=== PATIENT | male | born 1995 | race Caucasian/White ===

== ENCOUNTER 2023-03-16 03:57 | Outpatient (REF) | payer SELFPAY ==
[2023-03-19 10:32] LABS: Measles IgG Antibody Positive (See Note); Mumps Antibody IgG Positive (See Note); Rubella IgG Ab (UVM) Positive (See Note); Varicella IgG Antibody Positive (See Note)
[2023-03-19 11:02] LABS: HBs Antibody, Quant <3.1 mIU/mL (See Note); Hepatitis B Surface Ab Negative (See Note)
[2023-03-19 14:01] LABS: TB Interpretation Negative (Negative); TB1 Ag minus Nil 0.01 IU/ml; TB2 Ag minus Nil 0.03 IU/mL
== END 2023-03-16 03:58 | disposition home or self-care (01) ==
LOC: LBO 03:57
PROVIDERS: Visit Provider Nurse Practitioner Family
DX: Z02.1 Encounter for pre-employment examination (principal); Z11.59 Encounter for screening for other viral diseases; Z11.1 Encounter for screening for respiratory tuberculosis
CPT/HCPCS: 36415; 86706; 86787; 86480; 86735; 86762; 86765

== ENCOUNTER 2023-07-02 08:43 | Emergency (ER) | payer OTHER, SELFPAY ==
--- NOTE | 2023-07-02 08:44 | ED.GENADUL_ITS ---
Discharge Plan Disposition Patient Disposition: Home Discharge Details Clinical Impression: Chest pain, unspecified Primary Care Provider: Rody Zimmerman ED Provider: Ho Easley Home Meds and New Rx's Prescriptions: No Action No Known Home Meds Discharge Instructions Instructions: Chest Pain (ED) Additional Instructions: You were seen in the emergency department for your chest pain. Your blood work showed no sign of heart attack. Your blood work also showed that you are not anemic. Please return to the emergency department if you develop shortness of b reath vomiting or any additional blood or have any other concerns. Otherwise please follow-up with your primary care provider later this week. Discharge Data Discharge Date/Time-TO BE ENTERED AT DEPARTURE: 07/02/23 13:09 HPI General Date/Time Provider Initiated Documentation: 07/02/23 08:44 . HPI Narrative: MDM This is an overall very well-appearing normothermic and not tachycardic 28-year-old male with chest pain and history of hematemesis for which patient will undergo labs along with type and screen. Patient does have shortness of breath associated chest pain and I considered PE however the patient is PERC negative so I did not send a D-dimer. Patient lacks risk factors for ACS beyond obesity so if his 2 troponins are negative and is nonischemic ECG will be appropriate for empiric trial of discharge with expectant outpatient management given low heart score. I considered Boerhaave syndrome however the patient has no crepitance and is nontoxic-appearing so I did not feel that he required a CT of his chest abdomen pelvis. Furthermore his history is reassuring as he states that his chest pain did not worsen this morning after vomiting but was in the background for the past several weeks. If his chest x-ray is abnormal we will consider CT chest. Patient is not hypotensive nor dialysis patient so doubt tamponade. Given elevated BMI with chest pain will obtain lipase to assess for pancreatitis. No rash to chest to suggest zoster. No pain out of proportion to suggest necrotizing soft tissue infection. No fevers nor cough so doubt pneumonia. Equal breath sounds and no trauma so doubt pneumothorax. No tearing quality to pain so doubt aortic dissection. 10 AM CBC with leukocytosis but no anemia. No thrombocytopenia. 10:22 AM Negative troponin. Comprehensive metabolic panel showing no LFT abnormalities. Normal renal function. No acute electrolyte abnormalities. Lipase within normal limits. I have explained the patient's reassuring evaluation to him thus far. 1 PM Reassuring negative repeat troponin. Will proceed with an empiric trial of discharge with expectant outpatient management. Patient felt improved following IV fluids. HEART SCORE Chest pain Diagnostic Protocol: [-History/Physical/Gestalt: Slightly Suspicious (0)] [- EKG: Significant ST - depression (+2)] [- EKG: Nonspecific repolarization (+1)] [-EKG: Normal and/or unchanged from prior EKG (0)] [-AGE: less than 45 (0)] [- RISK FACTORS: 1 - 2 risk factors (+1)] [-TROPONIN: <= normal limit (0)] - TOTAL SCORE: 1 - Risk Factors: DM, current or recent smoker, HTN, HLD, family hx of CAD, obesity - INTERPRETATION: With a total score of 3 or less, risk of major cardiac event within six weeks 1.7%, likely lower with two negative troponins. [I explained to the patient that the risk of subsequent major cardiac event within 1 month is not 0, however risk predicted to be less than 2%. Patient verbalized understanding, accepts this risk and shared and the decision for discharge with PCP follow-up for further evaluation and management. They understand to return to the ED immediately with any worsening symptoms, new symptoms or other concerns.] Chronic conditions affecting the care of the patient: Elevated BMI History obtained from an outside historian: N/A External record review: No [facility] [place] [Diagnostic interpretations performed by me: Per my independent interpretation chest x-ray shows: No acute cardiopulmonary process Per my independent interpretation EKG shows: Normal sinus rhythm at a rate of 73. Normal axis. Interventricular conduction delay with a QRS of 107. IL and QTc within normal limits. No acute injury pattern. No prior for comparison. Medications: N/A Social determinants of health affecting disposition: N/A Management discussed with: N/A Treatment/interventions considered: N/A Response to therapies provided: Improved symptoms following fluids HPI This is a 28-year-old male arrived to the emergency department via private vehicle in the setting of nausea and vomiting. Patient reports that this morning after eating a lobster dinner last night he vomited approximately half a cup of blood. He is also for the past several weeks had a central chest tightness. He says that it is intermittent. No recent URI symptoms. He says that this is associated with shortness of breath. His pain does not radiate. It worsens when he coughs. It last for several minutes. He denies history of PE and DVT. His chest pain did not worsen today. He denies history of coronary artery disease hypertension hyperlipidemia and diabetes. He smokes marijuana but denies routine tobacco and illicits. He has had no recent fevers nor cough. Exam General: Well-appearing in no acute distress speaking in complete sentences. Head: Normocephalic, atraumatic. Eye: Extraocular eye movements intact. No conjunctival injection. No scleral icterus. Ear, nose, mouth, throat: Grossly normal inspection. Normal voice, handling secretions normally. Neck: Trachea midline. Cardiovascular: Well-perfused distal extremities. Regular rate and rhythm. Chest wall: No crepitance Respiratory: Nonlabored respiration. Clear lungs bilaterally Gastrointestinal: Nondistended abdomen. Nontender. Musculoskeletal: No edema. Moving all 4 extremities spontaneously. Skin: Normal for age and race, grossly normal temperature and turgor. No acute rash. Neurologic: Alert and appropriate, no apparent acute deficits. Psychiatric: Mood and manner are appropriate. Grooming and personal hygiene are appropriate. Related Data Home Medications Medication Instructions Recorded Confirmed Unknown [No Known Home Meds] 07/02/23 07/02/23 Allergies Allergy/AdvReac Type Severity Reaction Status Date / Time No Known Allergies Allergy Unverified 07/02/23 09:58 [facility] All Active Problems (Updated 07/02/23 @ 11:02 by Ho Easley MD) Chest pain, unspecified (Acute) Social History Smoking/Tobacco Use Status: Never Smoking risk assessment performed?: Yes Alcohol Intake: current Alcohol Intake frequency: holidays/special occasions only Drug use: Daily Substance use type: marijuana Housing: house
[2023-07-02 08:54] VITALS: BP 120/76; PULSE 83; RESP 18; TEMP 37.1; O2SAT 98
--- NOTE | 2023-07-02 09:00 | DI.RAD_ITS ---
Exam(s) XR CHEST 2V PA LATERAL EXAM: XR CHEST 2V PA LATERAL CLINICAL HISTORY: Chest pain TECHNIQUE: 2D digital imaging was performed. COMPARISON: No exams were available for comparison FINDINGS: HEART: Normal size. Aorta: Not dilated. PULMONARY VASCULATURE: Normal. LUNGS: Clear. PLEURAL SPACE: No pleural effusion or pneumothorax. BONE:Unremarkable for age. Soft tissues: Unremarkable. IMPRESSION: No acute abnormality. DATA REPOSITORY: RADIATION DOSE DELIVERED:
--- NOTE | 2023-07-02 09:00 | RT.EKG_ITS ---
APPROVED REPORT Exam: Resting ECG Reason for Exam: Chest pain Patient Location: E HR:73 bpm ECG Measurements Heart Rate 73 AXIS CA 182 P 18 QRSd 107 QRS -1 QT 372 T 31 QTc 410 Conclusion Sinus rhythm...normal P axis, V-rate 60- 99 Normal sinus rhythm at a rate of 73. Normal axis. Interventricular conduction delay with a QRS of 1 07. CA and QTc within normal limits. No acute injury pattern. No prior for comparison.
[2023-07-02 09:36] LABS: Abs Immature Grans 0.04 10^3/uL (0.0-0.06); Absolute Eosinophil Count 0.15 10^3/uL (0.0-0.7); Absolute Lymphocyte Count 1.64 10^3/uL (1.2-3.4); Absolute Monocyte Count 0.82 10^3/uL (0.1-0.8); Absolute Neutrophil Count 8.42 10^3/uL (1.2-6.7); Basophils % 0.9; Eosinophils % 1.3; HCT 47.9 % (40.0-50.0); HGB 16.1 g/dL (13.5-17.5); Immature Grans % 0.4; Lymphocytes % 14.7; MCH 29.3 pg (27.0-33.0); MCHC 33.6 % (32.0-36.0); MCV 87 fL (80-95); MPV 9.9 fL (8.0-11.0); Monocytes % 7.3; Neutrophils % 75.4; Platelet Count 333 10^3/uL (130-400); RBC 5.49 10^6/uL (4.36-5.78); RDW 12.7 % (11.8-14.1); RDW-SD 40.8 fL; WBC 11.17 10^3/uL (4.4-10.8)
[2023-07-02] MEDS: Ondansetron 4 MG/2 ML VIAL IVP (09:53)
[2023-07-02] MEDS: Normal Saline 1,000 ML 1000 ML IV (09:53)
[2023-07-02 09:54] VITALS: RESP 18
[2023-07-02 09:55] LABS: ALT 33 U/L (16-63); AST 18 U/L (15-37); Albumin 4.1 g/dL (3.4-5.0); Alkaline Phosphatase 94 U/L (46-116); Anion Gap 7.9 mmol/L (3-11); BUN 12 mg/dL (7-18); Bilirubin, Total 0.5 mg/dL (0.2-1.0); CO2 29.1 mmol/L (21.0-32.0); CREATININE 0.9 mg/dL (0.70-1.30); Calcium 9.2 mg/dL (8.5-10.1); Chloride 101 mmol/L (98-107); Estimated GFR 117.83 (mL/min/1.73m2); Glucose 106 mg/dL (74-106); Lipase 49 U/L (16-77); Potassium 3.9 mmol/L (3.5-5.1); Sodium 138 mmol/L (136-145); Troponin I < 50 ng/L (<or=60)
[2023-07-02 10:33] VITALS: BP 122/68; PULSE 69; RESP 18; TEMP 36.5; O2SAT 99
--- NOTE | 2023-07-02 11:17 | DI.VRAD_ITS ---
PROCEDURE INFORMATION: Exam: XR Chest Exam date and time: 07/02/2023 10:12 AM Age: 28 years old Clinical indication: Other: Unspecified; Patient HX: Chest pain TECHNIQUE: Imaging protocol: Radiologic exam of the chest. Views: 2 views. COMPARISON: No relevant prior studies available. FINDINGS: Lungs: Unremarkable. No consolidation. Pleural spaces: Unremarkable. No pleural effusion. No pneumothorax. Heart/Mediastinum: Unremarkable. No cardiomegaly. Bones/joints: Unremarkable. IMPRESSION: No acute findings. Dictated and Authenticated by: Anthony Cartwright MD. Ordering:ESTEFANY Teague MD
[2023-07-02 12:49] LABS: Troponin I < 50 ng/L (<or=60)
[2023-07-02 13:09] VITALS: BP 119/98; PULSE 72; RESP 18; O2SAT 98
== END 2023-07-02 13:09 | disposition home or self-care (01) ==
PROVIDERS: Emergency Provider Emergency Medicine; PCP Nurse Practitioner Family
DX: R07.89 Other chest pain (principal); R11.2 Nausea with vomiting, unspecified
CPT/HCPCS: 36415; 80053; 83690; 86850; 86900; 86901; 93005; 96361; 96374; 99284; 71046; 84484; 85025; 93010; 99283; J2405

== ENCOUNTER 2023-12-13 20:34 | Outpatient (REF) | payer OTHER, SELFPAY ==
[2023-12-13 19:15] LABS: Hemoglobin A1C 5.4 % (<5.7)
[2023-12-14 21:24] LABS: HIV-1/2 Ag & Ab Screen Negative (Negative)
[2023-12-14 21:36] LABS: Hepatitis C Ab w Rflx HCV PCR Negative (Negative)
== END 2023-12-13 20:35 | disposition home or self-care (01) ==
LOC: NCHCN 20:34
PROVIDERS: PCP Nurse Practitioner Family; Visit Provider Nurse Practitioner Family
DX: Z00.00 Encounter for general adult medical examination without abnormal findings (principal); E55.9 Vitamin D deficiency, unspecified; Z13.1 Encounter for screening for diabetes mellitus; Z11.59 Encounter for screening for other viral diseases; Z11.4 Encounter for screening for human immunodeficiency virus [HIV]
CPT/HCPCS: 82306; 86803; 87389; 83036

== ENCOUNTER 2024-08-15 10:09 | Outpatient (REF) | payer OTHER, SELFPAY ==
--- OUTSIDE RECORDS SUMMARY | 2024-08-15 10:11 | XMS_ITS | Referral Summary ---
Author Organization [facility] Address [address] [place] [address] Care Team Providers Care Graphic Design Manager Name Role Phone Unavailable Primary Care Provider Unavailabl e Social History Tobacco Use Types Packs/Day Years Used Date Smoking Tobacco: Never Assessed Sex and Gender Information Value Date Recorded Sex Assigned at Not on file Legal Sex Male 12:21 EDT Gender Identity Not on file Sexual Orientation Not on file Plan of Treatment Not on file Procedures Procedure Name Priority Date/Time Associated Diagnosis Comments HEPATITIS C AB W REFLEX TO HCV RNA BY PCR Routine 12/13/2023 16:00 EDT from Last 3 Months or Most Recently Relevant to Health Maintenance Results * HEPATITIS C AB W REFLEX TO HCV RNA BY PCR (12/13/2023 16:00 EDT) Hep C Antibody Negative Negative 12/14/2023 21:30 EDT [facility] Blood VENOUS BLOOD / Unknown 12/13/2023 16:00 EDT 12/14/2023 17:32 EDT us Provider Outr Resulting Lab CHEMISTRY & BLOOD GA S ORDERABLES Final Result [facility] [address], [place] [id number] from Last 3 Months or Most Recently Relevant to Health Maintenance
--- OUTSIDE RECORDS SUMMARY | 2024-08-15 10:11 | XMS_ITS | Encounter Summary ---
Author Organization [facility] Address [address] [place] [address] Care Team Providers Care Cardiovascular Tech Name Role Phone Unavailable Primary Care Provider Unavailabl e Encounter Details Date Type Department Care Team (Late st Contact Info) Description 12/14/2023 Lab Requisition [facility] Pathology & Laboratory Medicine - [facility] [address] [place] [address] Outr Resulting Lab, Provider Social History Tobacco Use Types Packs/Day Years Used Date Smoking Tobacco: Never Assessed Sex and Gender Information Value Date Recorded Sex Assigned at Not on file Legal Sex Male 12:21 EDT Gender Identity Not on file Sexual Orientation Not on file documented as of this encounter Plan of Treatment Not on file documented as of this encounter Procedures Procedure Name Priority Date/Time Associated Diagnosis Comments HEPATITIS C AB W REFLEX TO HCV RNA BY PCR Routine 12/13/2023 16:00 EDT documented in this encounter Results * HEPATITIS C AB W REFLEX TO HCV RNA BY PCR (12/13/2023 16:00 EDT) Hep C Antibody Negative Negative 12/14/2023 21:30 EDT [facility] Blood VENOUS BLOOD / Unknown 12/13/2023 16:00 EDT 12/14/2023 17:32 EDT us Provider Outr Resulting Lab CHEMISTRY & BLOOD GA S ORDERABLES Final Result [facility] [address] [place] [address] documented in this encounter Visit Diagnoses Not on filedocumented in this encounter
--- OUTSIDE RECORDS SUMMARY | 2024-08-15 10:11 | XMS_ITS | Encounter Summary ---
Author Organization [facility] Address [address] [place] [address] Care Team Providers Care Production Control Supervisor Name Role Phone Unavailable Primary Care Provider Unavailabl e Encounter Details Date Type Department Care Team (Late st Contact Info) Description 03/16/2023 Lab Requisition [facility] Pathology & Laboratory Medicine - [facility] [address] [place] [address] Outr Resulting Lab, Provider Social History Tobacco [...] Procedure Name Priority Date/Time Associated Diagnosis Comments MEASLES IGG AB Routine 03/16/2023 9:03 EDT RUBELLA IGG ANTIBODY Routine 03/16/2023 9:03 EDT HEPATITIS B SURFACE ANTIBODY Routine 03/16/2023 9:03 EDT VARICELLA IGG ANTIBODY Routine 03/16/2023 9:03 EDT MUMPS ANTIBODY IGG Routine 03/16/2023 9:03 EDT documented in this encounter Results * HEPATITIS B SURFACE ANTIBODY (03/16/2023 9:03 EDT) Hep B Surface Ab, Quantitative <3.1 See Note mIU/mL 03/19/2023 10:57 EDT [facility] Comment: Reference Range for Hep B Surface Ab, Quant: Positive: >= 10.0 mIU/mL Negative: ??< 10.0 mIU/mL Patient is presumed to not be immune to infection with Hepatitis B Virus. Hep B Surface Ab, Qualitative Negative See Note 03/19/2023 10:57 EDT [facility] Comment: Reference Range for Hep B Surface Ab, Qual: Unvaccinated: ??Negative Vaccinated: ??Positive Blood VENOUS BLOOD / Unknown 03/16/2023 9:03 EDT 03/16/2023 17:43 EDT us Provider Outr Resulting Lab CHEMISTRY & BLOOD GA S ORDERABLES Final Result [facility] [address] [place] [address] * MEASLES IGG AB (03/16/2023 9:03 EDT) Measles IgG Ab Positive See Note 03/19/2023 10:26 EDT [facility] Comment:Presence of detectab le measles virus IgG antibodies. Blood VENOUS BLOOD / Unknown 03/16/2023 9:03 EDT 03/16/2023 17:43 EDT us Provider Outr Resulting Lab IMMUNOLOGY AND SEROL OGY ORDERABLES Final Result Performing Organization Address City/[facility]/ZIP Co de Phone Number [facility] [address] [place] [address] * VARICELLA IGG ANTIBODY (03/16/2023 9:03 EDT) Varicella IgG Ab Positive See Note 03/19/2023 10:26 EDT [facility] Comment:Presence of detectab le Varicella Zoster virus IgG antibodies. Blood VENOUS BLOOD / Unknown 03/16/2023 9:03 EDT 03/16/2023 17:43 EDT us Provider Outr Resulting Lab IMMUNOLOGY AND SEROL OGY ORDERABLES Final Result Performing Organization Address City/[facility]/ZIP Co de Phone Number [facility] [address] [place] [address] * MUMPS ANTIBODY IGG (03/16/2023 9:03 EDT) Mumps Antibody IgG Positive See Note 03/19/2023 10:27 EDT [facility] Comment:Presence of detectab le mumps virus IgG antibodies. Blood VENOUS BLOOD / Unknown 03/16/2023 9:03 EDT 03/16/2023 17:43 EDT us Provider Outr Resulting Lab IMMUNOLOGY AND SEROL OGY ORDERABLES Final Result Performing Organization Address City/[facility] Co de Phone Number [facility] [address] [place] [address] * RUBELLA IGG ANTIBODY (03/16/2023 9:03 EDT) Rubella IgG Ab Positive See Note 03/19/2023 10:28 EDT [facility] Comment:Positive for IgG ant ibodies to Rubella virus. Blood VENOUS BLOOD / Unknown 03/16/2023 9:03 EDT 03/16/2023 17:43 EDT us Provider Outr Resulting Lab CHEMISTRY & BLOOD GA S ORDERABLES Final Result [facility] [address] [place] [address] documented in this encounter Visit Diagnoses Not on filedocumented in this encounter
--- OUTSIDE RECORDS SUMMARY | 2024-08-15 10:11 | XMS_ITS | Encounter Summary ---
Author Organization [facility] Address [address] [place] [address] Care Team Providers Care Restaurant Inspector Name Role Phone Unavailable Primary Care Provider Unavailabl e Encounter Details Date Type Department Care Team (Late st Contact Info) Description 03/18/2023 Lab Requisition [facility] Pathology & Laboratory Medicine - [address] [address] Outr Resulting Lab, Provider Social History Tobacco [...] Procedure Name Priority Date/Time Associated Diagnosis Comments QUANTIFERON MITOGEN (PERFORMABLE) Today 03/16/2023 9:03 EDT QUANTIFERON TB2 (PERFORMABLE) Today 03/16/2023 9:03 EDT QUANTIFERON TB1 (PERFORMABLE) Today 03/16/2023 9:03 EDT QUANTIFERON NIL (PERFORMABLE) Today 03/16/2023 9:03 EDT QUANTIFERON INTERPRETATION (PERFORMABLE) Today 03/16/2023 9:03 EDT QUANTIFERON TB GOLD PLUS Routine 03/16/2023 9:03 EDT documented in this encounter Results * QUANTIFERON INTERPRETATION (PERFORMABLE) (03/16/2023 9:03 EDT) Quantiferon Interpretation Negative Negative 03/19/2023 13:56 EDT [facility] Comment:No interferon-gamma response to M. tuberculosis antigens was detected. ??Infection with M. tuberculosis is unlikely. A single negative result does not exclude infection with M. tuberculosis. ??In patients at high risk for M. tuberculosis infection, a second test should be considered. TB1 Ag minus Nil 0.01 IU/ml 03/19/20 13:56 EDT [facility] TB2 Ag minus Nil 0.03 IU/mL 03/19/20 13:56 EDT [facility] Blood VENOUS BLOOD / Unknown 03/16/2023 9:03 EDT 03/19/2023 13:18 EDT Narrative [facility] - 03/19/2023 13:56 EDT Results were obtained with the [employer] QuantiFERON-TB Gold Plus CLIA. New platform in use 03/09/2021 us Provider Outr Resulting Lab IMMUNOLOGY AND SEROL OGY ORDERABLES Final Result Performing Organization Address [facility] Co de Phone Number [facility] [address] [place] [address] * QUANTIFERON MITOGEN (PERFORMABLE) (03/16/2023 9:03 EDT) Blood VENOUS BLOOD / Unknown 03/16/2023 9:03 EDT 03/18/2023 16:27 EDT us Provider Outr Resulting Lab IMMUNOLOGY AND SEROL OGY ORDERABLES Final Result Performing Organization Address [facility] Co de Phone Number [facility] [address] [place] [address] * QUANTIFERON TB2 (PERFORMABLE) (03/16/2023 9:03 EDT) Blood VENOUS BLOOD / Unknown 03/16/2023 9:03 EDT 03/18/2023 16:27 EDT us Provider Outr Resulting Lab IMMUNOLOGY AND SEROL OGY ORDERABLES Final Result Performing Organization Address [facility] Co de Phone Number [facility] [address] [place] [address] * QUANTIFERON TB1 (PERFORMABLE) (03/16/2023 9:03 EDT) Blood VENOUS BLOOD / Unknown 03/16/2023 9:03 EDT 03/18/2023 16:27 EDT us Provider Outr Resulting Lab IMMUNOLOGY AND SEROL OGY ORDERABLES Final Result Performing Organization Address [facility] Co de Phone Number [facility] [address] [place] [address] * QUANTIFERON NIL (PERFORMABLE) (03/16/2023 9:03 EDT) Blood VENOUS BLOOD / Unknown 03/16/2023 9:03 EDT 03/18/2023 16:27 EDT us Provider Outr Resulting Lab IMMUNOLOGY AND SEROL OGY ORDERABLES Final Result Performing Organization Address [facility] Co de Phone Number [facility] [address] [place] [address] documented in this encounter Visit Diagnoses Not on filedocumented in this encounter
--- OUTSIDE RECORDS SUMMARY | 2024-08-15 10:11 | XMS_ITS | Encounter Summary ---
Author Organization [facility] Address [address] [place] [address] Care Team Providers Care Pile Operator Name Role Phone Unavailable Primary Care Provider Unavailabl e Encounter Details Date Type Department Care Team (Late st Contact Info) Description 12/14/2023 Lab Requisition [facility] Pathology & Laboratory Medicine - [address] [address] Outr Resulting Lab, Provider Social History Tobacco [...] Procedure Name Priority Date/Time Associated Diagnosis Comments HIV 1/2 ANTIGEN AND ANTIBODY, 4TH GENERATION Routine 12/13/2023 16:00 EDT documented in this encounter Results * HIV 1/2 ANTIGEN AND ANTIBODY, 4TH GENERATION (12/13/2023 16:00 EDT) HIV 1 and 2 Antibody/p24 Antigen, 4th Generation Negative Negative 12/14/2023 21:19 EDT [facility] Comment:If acute HIV-1 infec tion is suspected in a high risk patient, submit plasma specimen for HIV-1 RNA quantitation test. Blood VENOUS BLOOD / Unknown 12/13/2023 16:00 EDT 12/14/2023 17:32 EDT Narrative [facility] - 12/14/2023 21:19 EDT Fourth Generation assay performed on the Siemens Cava [employer]ill[employer] XPT. us Provider Outr Resulting Lab IMMUNOLOGY AND SEROL OGY ORDERABLES Final Result [facility] [address] [place] [address] documented in this encounter Visit Diagnoses Not on filedocumented in this encounter
--- OUTSIDE RECORDS SUMMARY | 2024-08-15 10:11 | XMS_ITS | Clinical Summary ---
Author Organization [facility] Address [address] [place] [address] Care Team Providers Care Jewel Hole Finish Opener Name Role Phone Unavailable Primary Care Provider Unavailabl e Social History Tobacco Use Types Packs/Day Years Used Date Smoking Tobacco: Never Assessed Sex and Gender Information Value Date Recorded Sex Assigned at Not on file Legal Sex Male 12:21 EDT Gender Identity Not on file Sexual Orientation Not on file Plan of Treatment Health Maintenance Due Date Last Done Comments Hepatitis B Vaccine (1 of 3 - 19+ 3-dose series) 06/19 COVID-19 Vaccine ( season) 2024 Hepatitis C Screen Completed 12/13/2023 Procedures Procedure Name Priority Date/Time Associated Diagnosis Comments HEPATITIS C AB W REFLEX TO HCV RNA BY PCR Routine 12/13/2023 16:00 EDT from Last 3 Months or Most Recently Relevant to Health Maintenance Results * HEPATITIS C AB W REFLEX TO HCV RNA BY PCR (12/13/2023 16:00 EDT) Hep C Antibody Negative Negative 12/14/2023 21:30 EDT [facility] Blood VENOUS BLOOD / Unknown 12/13/2023 16:00 EDT 12/14/2023 17:32 EDT us Provider Outr Resulting Lab CHEMISTRY & BLOOD GA S ORDERABLES Final Result [facility] [address] [place] [address] from Last 3 Months or Most Recently Relevant to Health Maintenance
[2024-08-15 15:03] LABS: Abs Immature Grans 0.03 10^3/uL (0.0-0.06); Absolute Basophil Count 0.09 10^3/uL (0.0-0.2); Absolute Eosinophil Count 0.23 10^3/uL (0.0-0.7); Absolute Lymphocyte Count 1.54 10^3/uL (1.2-3.4); Absolute Monocyte Count 0.77 10^3/uL (0.1-0.8); Absolute Neutrophil Count 5.54 10^3/uL (1.2-6.7); Basophils % 1.1 %; Eosinophils % 2.8 %; HCT 49.1 % (40.0-50.0); HGB 16.4 g/dL (13.5-17.5); Immature Grans % 0.4 %; Lymphocytes % 18.8 %; MCH 29.8 pg (27.0-33.0); MCHC 33.4 % (32.0-36.0); MCV 89 fL (80-95); MPV 10.3 fL (8.0-11.0); Monocytes % 9.4 %; Neutrophils % 67.5 %; Platelet Count 332 10^3/uL (130-400); RBC 5.51 10^6/uL (4.36-5.78); RDW 12.3 % (11.8-14.1); RDW-SD 40.9 fL
[2024-08-15 15:22] LABS: ALT 28 U/L (16-63); AST 19 U/L (15-37); Albumin 4.1 g/dL (3.4-5.0); Alkaline Phosphatase 95 U/L (46-116); Amylase 49 U/L (25-115); Anion Gap 4.9 mmol/L (3-11); BUN 11 mg/dL (7-18); Bilirubin, Total 0.86 mg/dL (0.2-1.0); CO2 27.1 mmol/L (21.0-32.0); CREATININE 0.8 mg/dL (0.70-1.30); Calcium 9.3 mg/dL (8.5-10.1); Chloride 107 mmol/L (98-107); Estimated GFR 121.34 (mL/min/1.73m2); Glucose 97 mg/dL (74-106); Lipase 44 U/L (<78); Potassium 4.2 mmol/L (3.5-5.1); Sodium 139 mmol/L (136-145); TSH (W/Ref FT4) 0.96 uIU/mL (0.36-3.74); Total Protein 7.8 g/dL (6.4-8.2)
== END 2024-08-15 10:10 | disposition home or self-care (01) ==
LOC: NCHCN 10:09
PROVIDERS: PCP Nurse Practitioner Family; Visit Provider Nurse Practitioner Family
DX: R19.4 Change in bowel habit (principal)
CPT/HCPCS: 80053; 83690; 82150; 84443; 85025

== ENCOUNTER 2024-08-18 17:50 | Outpatient (REF) | payer OTHER, SELFPAY | END 2024-08-18 17:51 | disposition home or self-care (01) | LOC: NCHCN 17:50 | PROVIDERS: PCP Nurse Practitioner Family; Visit Provider Nurse Practitioner Family | DX: R19.4 Change in bowel habit (principal) | CPT/HCPCS: 83630 ==

== ENCOUNTER 2024-10-23 01:21 | Outpatient (CLI) | payer OTHER, SELFPAY ==
--- NOTE | 2024-10-23 13:03 | DI.RAD_ITS ---
Exam(s) XR FOOT RT COMPLETE EXAM: XR FOOT RT COMPLETE CLINICAL HISTORY: Right foot pain,M79.671. TECHNIQUE: 2D digital imaging was performed. COMPARISON: No exams were available for comparison FINDINGS: 3 views No evidence of fracture or diastasis of the Lisfranc joint. The great toe metatarsophalangeal joint appears unremarkable as do the other articulations. Bone density normal. No osseous lesions nor ero sions and no evidence of radiopaque foreign bodies. No pes planus. No inferior calcaneal spur. Os trigonum is noted. IMPRESSION: No acute osseous findings in the foot DATA REPOSITORY: RADIATION DOSE DELIVERED:
--- NOTE | 2024-10-23 13:03 | DI.RAD_ITS ---
Exam(s) XR FOOT LT COMPLETE EXAM: XR FOOT LT COMPLETE CLINICAL HISTORY: Left foot pain,M79.672. TECHNIQUE: 2D digital imaging was performed of the left foot. Three images were obtained. AP, obli que and lateral views were obtained. COMPARISON: No exams were available for comparison FINDINGS: BONES: No acute fracture is present. No bony destructive lesion is seen. JOINTS: No dislocation present. The joint spaces are well maintained. SOFT TISSUE: Normal. IMPRESSION: Unremarkable radiographs of the left foot. DATA REPOSITORY: RADIATION DOSE DELIVERED:
== END 2024-10-23 01:41 ==
LOC: DI 01:21
PROVIDERS: PCP Nurse Practitioner Family; Visit Provider Podiatrist
DX: M79.672 Pain in left foot (principal); M79.671 Pain in right foot
CPT/HCPCS: 73630